=== PATIENT | male | born 1945 | race Caucasian/White ===

== ENCOUNTER 2025-03-30 06:58 | Outpatient (CLI) | payer OTHER | END 2025-03-30 06:59 | disposition home or self-care (01) | LOC: CSHCP 06:58 | PROVIDERS: ATTEND Internal Medicine Critical Care Medicine | DX: J44.9 Chronic obstructive pulmonary disease, unspecified (principal); J90 Pleural effusion, not elsewhere classified; J94.9 Pleural condition, unspecified; J98.4 Other disorders of lung | CPT/HCPCS: 71250; 94060; 94664; 94726; 94729; 94760 ==